=== PATIENT | female | born 1950 | race Caucasian/White ===

== ENCOUNTER 2025-02-03 21:49 | Observation (INO) ==
--- NOTE | 2025-02-03 22:10 | Emergency Department Note ---
HPI - Abdominal Pain General Chief Complaint: Abdominal Pain Stated Complaint: ABDOMINAL PAIN Time Seen by Provider: 02/03/25 21:55 Source: patient Mode of arrival: walk-in Limitations: no limitations History of Present Illness HPI narrative: This is a 75-year-old white female who presents with complaint of "I think I have a bowel blockage again." Patient has a prior history of similar. She states that she has never required surgery, nor seen a surgeon. She states that she was admitted to our hospital here, and "got better with some medicine." She denies fever or chills. She admits to nausea without vomiting. She had severe, diffuse abdominal pain, sudden onset this evening. She states she had a bowel movement earlier today, but it was "hard." She denies any prior history of significant surgeries, and has no other complaints. MD elicited complaint: abdominal pain Pertinent past history: constipation and other (SBO) Onset (ago): hour(s) (1) Pain Consistency: constant Location: diffuse Severity: severe Quality: aching and sharp Radiation: RUQ and epigastric Migration to: no migration Exacerbating factors: nothing Relieving factors: nothing Associated symptoms: nausea Related Data Patient : No Home Medications Medication Instructions Recorded Confirmed albuterol sulfate 90 mcg/actuation 2 puff inhalation Q 4H PRN 10/20/24 10/20/24 aerosol inhaler shortness of breath or wheez ing atorvastatin 10 mg tablet 10 mg PO DAILY 10/20/2403/09 carvedilol 6.25 mg tablet 6.25 mg PO BID 10/20/2403/09 lisinopril 20 mg tablet 20 mg PO DAILY 10/20/2403/09 Previous Rx's Medication Instructions Recorded metoclopramide HCl 5 mg tablet 5 mg PO Q8H bowel obstr uction #20 10/22/24 (Reglan) tabs polyethylene glycol 3350 17 17 g PO DAILY constipation #238 10/22/24 gram/dose oral powder (Miralax) grams Allergies Allergy/AdvReac Type Severity Reaction Status Date / Time iodine Allergy Verified 02/03/25 22:00 IVP dyd Allergy Uncoded 02/03/25 22:00 Review of Systems 2 Status of ROS 10 or more systems reviewed and unremark able except as noted in history and below Constitutional Denies: fever, chills or change in weight Eyes Denies: change in vision, blurry vision or blind spots Ears, nose, mouth, and throat Denies: throat pain, neck pain, throat swelling or difficulty swallowing Cardiovascular Denies: chest pain, palpitations, edema or swelling of feet/ankles Respiratory Denies: shortness of breath, cough, wheezing or stridor Gastrointestinal Reports: abdominal pain, nausea, constipation and change in bowel habits; Denies: vomiting or coffee grounds in vomit Genitourinary Denies: painful urination, urinary frequency or urinary urgency Musculoskeletal Denies: back pain, neck pain, extremity pain or extremity swelling Integumentary/Breast Denies: rash, itching, redness or skin pain Neurological Denies: headache, numbness in extremities, weakness in extremities or lack of coordination Psychiatric Denies: anxiety, mood swings, panic attacks or change in sleep pattern Endocrine Denies: excessive urination, excessive thirst, fatigue or cold intolerance Hematologic/Lymphatic Denies: easy bruising, easy bleeding or enlarged lymph nodes Allergic/Immunologic Denies: hives, throat swelling, tongue swelling or facial swelling PFSH PFS Medical History (Updated 02/03/25 @ 22:25 by Marlene Marrero RN) Hyperlipemia Hypertension Surgical History H/O section Hx of appendectomy H/O left nephrectomy Social History Smoking status: never smoker Within the past year, how often did you have a drink containing alcohol: never Score interpretation: A score less than 3 is consistent with normal alcohol consumption. Non-prescribed substance use: denies use Problems where you live: no known problems Highest level of school completed/degree received: [employer] Feel stressed/tense/nervous/anxious/difficulty sleeping: to some extent Life stressor details: current medical condition Due to disability, difficulty making decisions: No Exam 2 Constitutional: normal general appearance, distress noted (mild), average body habitus and no limitations Vital Signs - 24 hr 02/03/25 21:49 02/03/25 21:49 Temperature 98.4 F Pulse Rate 79 Respiratory Rate 20 Blood Pressure 196/104 Pulse Oximetry 99 99 Oxygen Delivery Me thod Room Air Room Air HENMT: normocephalic, head/scalp atraumatic, hearing grossly normal bilaterally, external ears normal and external nose normal Eyes: PERRL, EOMs intact bilaterally, conjunctivae normal and no scleral icterus Neck/C-Spine: visual inspection normal and trachea midline Lymph: no lymphadenopathy noted and no lymphedema noted Chest: inspection of chest normal and palpation of chest normal Respiratory: breath sounds equal bilaterally, normal respiratory effort and clear to auscultation bilaterally Cardiovascular: normal heart rate noted, regular rhythm noted, no gallop, no rub and no murmur Gastrointestinal: abdomen abnormal to inspection, abdomen soft to palpation, tender to palpation (severe), (epigastric) and (RUQ), nontender to percussion, nondistended, abnormal bowel sounds noted (hypoactive bowel sounds), no masses and no pulsatile mass Genitourinary: no CVA tenderness and bladder normal to palpation Back/Pelvis: spine normal to inspection, no thoracic spine tenderness and no lumbar spine tenderness Extremities: normal to inspection, normal to palpation, no tenderness and full ROM Neurology: no movement abnormality noted, no focal motor deficit noted, no sensory deficits noted and coordination normal Psychiatry: mental status grossly normal, thought process normal, cooperative and affect normal Skin: skin color normal, no rash, no lesions and no ecchymosis noted Image: Body (4 view): 1. Abdominal pain Course Course Hospital Course: Patient is concern for acute bowel obstruction, with history of similar. Her labs and vitals are stable, but she is in significant pain. Her CT scan does show possible partial small bowel obstruction. Patient's pain is improved in the ER with morphine and Zofran. She states that she has previously stayed in the hospital here at this facility, and does not wish to be transferred. I do inform her that we do not have a surgeon here, but she states that Dr. Orta is taking great care of her care before, and she has not required surgery previously, and she is hoping that she can stay here with some IV fluids and see if the bowel obstruction will resolve. I do feel that this is reasonable. I make attempts x 2 to reach out to Aisha Sanchez, case management, for possible admission. At the time of writing, I have not heard back and it has been approximately an hour and a half since initial contact. Also speak to Dr. Orta regarding her patient, and my recommendation for admission patient admitted for further care. Vital Signs Vital signs: Vital Signs Temperature 98.4 F 02/03/25 21:49 Pulse Rate 79 02/03/25 21:49 Respiratory Rate 20 02/03/25 21:49 Blood Pressure 196/104 02/03/25 21:49 Pulse Oximetry 99 02/03/25 21:49 Oxygen Delivery Method Room Air 02/03/25 21:49 Temperature 98.4 F 02/03/25 21:49 Pulse Rate 79 02/03/25 21:49 Respiratory Rate 20 02/03/25 21:49 Blood Pressure 196/104 02/03/25 21:49 Pulse Oximetry 99 02/03/25 21:49 Oxygen Delivery Method Room Air 02/03/25 21:49 MDM - Abdominal Pain MDM Narrative Medical decision making narrative: SBO, colitis, gastroenteritis, ileus, sepsis Patient does have possible partial small bowel obstruction on CT scan. No other emergent findings. Lactic acid negative. no leukocytosis. Vital stable pain control. Differential Diagnosis Differential diagnosis: Likely abdominal pain, acute appendicitis, calculus of kidney, constipation, diverticulitis, endometriosis, gastroenteritis, pancreatitis and small bowel obstruction Medical Records Attestation: I reviewed the patient's medical records. Lab Data Attestation: I reviewed the patient's lab results. Labs: Lab Results 02/03/25 Range/Units 22:00 WBC 9.7 H (4.3-9.3) K/uL RBC 5.0 (4.00-5.50) M/uL Hgb 13.8 (12.5-15.8) gm/dL Hct 42.2 (35.9-46.7) % MCV 84.5 (81.0-93.7) fl MCH 27.6 (27.6-32.2) pg MCHC 32.7 L (33.1-35.3) g/dl RDW 13.7 (11.4-14.2) % Plt Count 227 (152-353) K/uL MPV 8.2 (6.9-10.8) fl Gran % 51.2 (47.8-71.3) % Lymph % (Auto) 35.4 (20.0-43.0) % [place] % (Auto) 8.7 (3.6-9.8) % Eos % (Auto) 4.2 H (0.4-2.8) % Baso % (Auto) 0.5 (0.1-0.85) Lymph # (Auto) 3.4 H (1.1-3.1) [place] # (Auto) 0.8 L (1.1-3.1) Eos # (Auto) 0.4 H (0.0-0.2) Baso # (Auto) 0.0 (0.0-0.1) Absolute Gran (auto) 5.0 (2.3-6.0) Sodium 140 (136-145) mmol/L Potassium 4.3 (3.6-5.2) mmol/L Chloride 104.0 (98-107) mmol/L Carbon Dioxide 29 (21-32) mmol/L Anion Gap 7.0 (4-14) mEq/L BUN 21 H (7-18) mg/dL Creatinine 1.1 (0.6-1.3) mg/dL Estimated GFR 53.1 (>59.9) Glucose 120 H (70-110) mg/dL Lactic Acid 1.0 (0.27-1.43) mmol/L Calcium 9.9 (8.5-10.1) mg/dL Total Bilirubin 0.51 (0.0-1.0) mg/dL AST 17 (15-37) U/L ALT 25 L (30-65) U/L Alkaline Phosphatase 72 (50-136) U/L C-Reactive Protein 0.100 (0.050-0.300) mg/dL Total Protein 7.3 (6.4-8.2) g/dL Albumin 4.2 (3.4-5.0) g/dL Lipase 19.0 (16.0-77.0) U/L Imaging Data Imaging ordered: CT scan - abdomen Attestation: I personally reviewed and interpreted this imaging study as follows: My impression: CT abdomen pelvis without contrast: Gallstones. Postoperative changes. Possible partial small bowel obstruction. Discharge Plan Discharge Patient Disposition: Admitted As Observation Condition: Improved Clinical Impression: Intestinal adhesions with partial obstruction, Acute generalized abdominal pain, Nausea without vomiting Time of Disposition: 00:12 Procedures ED Procedure Instructions IV insertion IV meds x 2
[2025-02-03 22:15] LABS: Basophils%(Percent) Auto 0.5 (0.1-0.85); Eosinophils#(Absolute)Auto 0.4 (0.0-0.2); Eosinophils%(Percent) Auto 4.2 % (0.4-2.8); Granulocytes % - Auto 51.2 % (47.8-71.3); Hematocrit 42.2 % (35.9-46.7); Mean Corpuscular Volume 84.5 fl (81.0-93.7); Monocytes #(Absolute)- Auto 0.8 (1.1-3.1); Monocytes %(Percent)- Auto 8.7 % (3.6-9.8); Platelet Count 227 K/uL (152-353); White Blood Count 9.7 K/uL (4.3-9.3)
[2025-02-03] MEDS: MORPHINE SULFATE 4 MG/ML CARTRIDGE IVP ONE (22:17)
[2025-02-03] MEDS: ONDANSETRON HCL/PF 4 MG/2 ML VIAL IVP ONE (22:18)
[2025-02-03 22:20] LABS: Potassium 4.3 mmol/L (3.6-5.2)
[2025-02-04] MEDS ORDERED: DOCUSATE SODIUM 100 MG CAPSULE PO PRN (01:13)
[2025-02-04] MEDS ORDERED: ALBUTEROL SULFATE INH PRN (01:13)
[2025-02-04] MEDS ORDERED: ACETAMINOPHEN 500 MG TABLET PO PRN (01:13)
[2025-02-04] MEDS: 0.9 % SODIUM CHLORIDE 1000 ML 1,000 ML IV SCH (02:30)
[2025-02-04] MEDS: METOCLOPRAMIDE HCL 10 MG TABLET PO SCH (02:30)
[2025-02-04] MEDS: MORPHINE SULFATE 2 MG/ML CARTRIDGE IV PRN (02:33)
[2025-02-04] MEDS: PANTOPRAZOLE SODIUM 40 MG TABLET.DR PO SCH (08:59)
[2025-02-04] MEDS: ATORVASTATIN CALCIUM 10 MG TABLET PO SCH (08:59)
[2025-02-04] MEDS: polyethylene glycoL 3350 17 GM POWD.PACK PO SCH (09:00)
[2025-02-04] MEDS: lisinopriL 20 MG TABLET PO SCH (09:00)
[2025-02-04] MEDS: ONDANSETRON HCL/PF 4 MG/2 ML VIAL INJ PRN (09:00)
[2025-02-04] MEDS: carvediloL 6.25 MG TABLET PO SCH (09:00)
[2025-02-04] MEDS: FAMOTIDINE 20 MG TABLET PO SCH (09:00)
--- NOTE | 2025-02-04 13:00 | History & Physical Report ---
H&P: HPI History of Present Illness Chief complaint: ABDOMINAL PAIN Narrative: This is a 75-year-old white female who presents with complaint of abdominal pain with nausea and vomiting states "I think I have a bowel blockage again." Patient has a prior history of similar events. She states that she has never required surgery to resolve bowel obstrustions medications have resolved in the past, nor has seen a surgeon for these episodes and has a bowel resection in the distant past. She states that she was admitted to our hospital here, and "got better with some medicine." She denies fever or chills. She admits to nausea without vomiting. She had severe, diffuse abdominal pain, sudden onset this evening. She states she had a bowel movement earlier today, but it was "hard." She denies any fever, headache, diarrhea is constipated always Review of Systems Status of ROS 10 or more systems reviewed and unremark able except as noted in history and below Constitutional Denies: fever, chills, change in weight or fatigue Eyes Denies: change in vision, blurry vision or blind spots Ears, nose, mouth, and throat Denies: throat pain, neck pain, throat swelling or difficulty swallowing Cardiovascular Denies: chest pain, palpitations, edema, swelling of feet/ankles or shortness of breath with exertion Respiratory Denies: shortness of breath, cough, wheezing or stridor Gastrointestinal Reports: abdominal pain, nausea, vomiting, constipation, bloa ting, feeling full early and change in bowel habits; Denies: coffee grounds in vomit, heartburn, diarrhea, belching, excessive passing of gas or difficulty swallowing Genitourinary Denies: painful urination, urinary frequency or urinary urgency Musculoskeletal Denies: back pain, neck pain, extremity pain or extremity swelling Integumentary/Breast Denies: rash, itching, redness or skin pain Neurological Denies: headache, numbness in extremities, weakness in extremities or lack of coordination Psychiatric Reports: anxiety and difficulty concentrating; Denies: mood swings, panic attacks, change in sleep pattern, hopelessness, loss of interest, irrita bility, paranoia, memory loss, visual hallucinations, auditory hallucinations, tactile hallucinations, suicidal ideation or homicidal ideation Endocrine Denies: excessive urination, excessive thirst, fatigue or cold intolerance Hematologic/Lymphatic Denies: easy bruising, easy bleeding or enlarged lymph nodes Allergic/Immunologic Denies: hives, throat swelling, tongue swelling, facial swelling or wheezing PFSH PFSH Medical History (Updated 02/04/25 @ 12:59 by Shani Orta DO) Hyperlipemia Hypertension Surgical History H/O section Hx of appendectomy H/O left nephrectomy Social History Smoking status: never smoker Within the past year, how often did you have a drink containing alcohol: never Score interpretation: A score less than 3 is consistent with normal alcohol consumption. Non-prescribed substance use: denies use Problems where you live: no known problems Highest level of school completed/degree received: high school Feel stressed/tense/nervous/anxious/difficulty sleeping: to some extent Life stressor details: current medical condition Due to disability, difficulty making decisions: No Meds Home Medications and Allergies Home Medications Medication Instructions Recorded Confirmed Type atorvastatin 10 mg tablet 10 mg PO DAILY 10/20/2401/15 History carvedilol 6.25 mg tablet 6.25 mg PO BID 10/20/2401/15 History lisinopril 20 mg tablet 20 mg PO DAILY 10/20/2401/15 History Allergies Allergy/AdvReac Type Severity Reaction Status Date / Time iodine Allergy Verified 02/03/25 22:00 IVP dyd Allergy Uncoded 02/03/25 22:00 Exam Constitutional: abnormal general appearance (disheveled) and (chronically ill), distress noted (mild), abnormal body habitus (obese), no limitations and alert Vital Signs - 24 hr 02/03/25 21:49 02/03/25 21:49 02/03/25 22:30 Temperature 98.4 F Pulse Rate 79 75 Pulse Rate [Bilate ral] Respiratory Rate 20 20 Blood Pressure 196/104 176/89 Blood Pressure [Le ft Arm] Pulse Oximetry 99 99 98 Oxygen Delivery Me thod Room Air Room Air Room Air 02/03/25 23:30 02/04/25 00:30 02/04/25 01:00 Temperature 98.4 F Pulse Rate 76 76 77 Pulse Rate [Bilate ral] Respiratory Rate 20 20 20 Blood Pressure 163/65 164/77 168/79 Blood Pressure [Le ft Arm] Pulse Oximetry 96 97 97 Oxygen Delivery Me thod Room Air Room Air Room Air 02/04/25 01:00 02/04/25 01:14 02/04/25 03:54 Temperature 98.4 F 98.2 F Pulse Rate 77 Pulse Rate [Bilate ral] 75 Respiratory Rate 20 17 Blood Pressure 168/79 Blood Pressure [Le ft Arm] 150/62 Pulse Oximetry 97 95 Oxygen Delivery Me thod Room Air Room Air 02/04/25 08:00 02/04/25 09:00 02/04/25 09:00 Temperature 97.6 F Pulse Rate 112 H Pulse Rate [Bilate ral] 80 Respiratory Rate 18 Blood Pressure 161/72 Blood Pressure [Le ft Arm] 161/72 Pulse Oximetry 97 Oxygen Delivery Me thod Room Air 02/04/25 11:54 Temperature 98.2 F Pulse Rate Pulse Rate [Bilate ral] 90 Respiratory Rate 18 Blood Pressure Blood Pressure [Le ft Arm] 164/68 Pulse Oximetry 96 Oxygen Delivery Me thod Room Air HENMT: normocephalic, head/scalp atraumatic, hearing grossly normal bilaterally, external ears normal, TMs abnormal, external nose normal, oral mucous membranes abnormal and dentition abnormal Eyes: PERRL, EOMs intact bilaterally, conjunctivae normal, no scleral icterus, papilledema noted and periorbital findings normal Neck/C-Spine: abnormal to visual inspection, trachea midline, cervical spine nontender, abnormal cervical ROM noted, supple, no meningeal signs, thyroid normal and no carotid bruits Lymph: no lymphadenopathy noted and no lymphedema noted Chest: inspection of chest normal and palpation of chest normal Respiratory: breath sounds equal bilaterally, normal respiratory effort and clear to auscultation bilaterally Cardiovascular: heart rate abnormal (tachycardic), regular rhythm noted, no gallop, no rub, no murmur, no JVD, no clicks, peripheral pulses 2+ throughout and no bruits noted Gastrointestinal: abdomen abnormal to inspection, abdomen soft to palpation, tender to palpation (severe), (epigastric) and (RUQ), tender to percussion, distended, abnormal bowel sounds noted (hypoactive bowel sounds), hepatosplenomegaly noted, no masses, no pulsatile mass, no ascites and no hernia Genitourinary: no CVA tenderness and bladder normal to palpation Back/Pelvis: spine abnormal to inspection, no thoracic spine tenderness, no lumbar spine tenderness, thoracic spine ROM abnormal and lumbar spine ROM abnormal Extremities: normal to inspection, normal to palpation, no tenderness, full ROM, no joint enlargement and no deformity Neurology: integrated marketing specialist II-XII intact, no movement abnormality noted, no focal motor deficit noted, sensory deficit noted, deep tendon reflexes 2+ bilaterally, gait abnormality noted, speech normal, coordination normal and GCS normal Psychiatry: Mental Status Exam documented within this Exam's Psych section mental status grossly normal, oriented x3, thought process abnormality noted, cooperative, affect normal, psychomotor activity normal and memory normal Feel stressed/tense/nervous/anxious/difficulty sleeping: rather much Life stressors: financial matters and other Life stressor details: illness Skin: skin color abnormal Reports (pale), no rash, no lesions, ecchymosis noted, no wounds, no lacerations, skin turgor abnormal, no jaundice, no petechiae, no mottling, nails abnormality noted and no alopecia Assessment and Plan Assessment and Plan (1) Hypoalbuminemia: Code(s): E88.09 - Other disorders of plasma-protein metabolism, not elsewhere classified (2) Anemia: Qualifiers: Anemia type: other cause Other causes of anemia: nutritional, other Qualified Code(s): 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 Code(s): D64.9 - Anemia, unspecified (3) Constipation: Qualifiers: Constipation type: unspecified constipation type Qualified Code(s): K59.00 - Constipation, unspecified Code(s): K59.00 - Constipation, unspecified (4) Hypertension: Qualifiers: Hypertension type: primary hypertension Qualified Code(s): I10 - Essential (primary) hypertension Code(s): I10 - Essential (primary) hypertension (5) Hyperlipemia: Qualifiers: Hyperlipidemia type: mixed hyperlipidemia Qualified Code(s): E78.2 - Mixed hyperlipidemia Code(s): E78.5 - Hyperlipidemia, unspecified (6) Partial bowel obstruction: Qualifiers: Intestinal obstruction type: obstruction due to adhesions Qualified Code(s): K56.51 - Intestinal adhesions [bands], with partial obstruction Code(s): K56.600 - Partial intestinal obstruction, unspecified as to cause (7) Nausea & vomiting: Qualifiers: Vomiting type: unspecified Qualified Code(s): R11.2 - Nausea with vomiting, unspecified Code(s): R11.2 - Nausea with vomiting, unspecified (8) Abdominal pain: Qualifiers: Abdominal location: epigastric Qualified Code(s): R10.13 - Epigastric pain Code(s): R10.9 - Unspecified abdominal pain Plan Cardiac monitoring 0.9% normal saline at 125 mL/h Reglan 10 mg IV every 8 hours Cipro 4 mg IV every 12 hours Flagyl 500 mg IV every 8 hours Protonix 40 mg IV every 12 hours Serial abdominal exams strict I's and O's and monitor for any bowel movements Lipase urinalysis pending Results Labs Labs: CBC 02/03/25 Range/Units 22:00 WBC 9.7 H (4.3-9.3) K/uL RBC 5.0 (4.00-5.50) M/uL Hgb 13.8 (12.5-15.8) gm/dL Hct 42.2 (35.9-46.7) % Plt Count 227 (152-353) K/uL Gran % 51.2 (47.8-71.3) % Lymph % (Auto) 35.4 (20.0-43.0) % [place] % (Auto) 8.7 (3.6-9.8) % Eos % (Auto) 4.2 H (0.4-2.8) % Baso % (Auto) 0.5 (0.1-0.85) Lymph # (Auto) 3.4 H (1.1-3.1) [place] # (Auto) 0.8 L (1.1-3.1) Eos # (Auto) 0.4 H (0.0-0.2) Baso # (Auto) 0.0 (0.0-0.1) Absolute Gran (auto) 5.0 (2.3-6.0) CMP 02/03/25 22:00 Sodium 140 Potassium 4.3 Chloride 104.0 Carbon Dioxide 29 BUN 21 H Creatinine 1.1 Glucose 120 H Calcium 9.9 Liver Function 02/03/25 Range/Units 22:00 Total Bilirubin 0.51 (0.0-1.0) mg/dL AST 17 (15-37) U/L ALT 25 L (30-65) U/L Alkaline Phosphatase 72 (50-136) U/L Albumin 4.2 (3.4-5.0) g/dL Pulse Oximetry Attestation: I have reviewed the pertinent pulse oximetry results. Imaging Imaging ordered: CT scan - abdomen and CT scan - pelvis Radiologist's impression: CT ABDOMEN AND PELVIS WITHOUT CONTRAST HISTORY: Possible small bowel obstruction COMPARISON: None TECHNIQUE: Axial images were obtained of the abdomen and pelvis without IV contrast. Sagittal and coronal reformatted images were provided. All images were reviewed in a variety of windows and levels. RADIATION REDUCTION TECHNIQUE: Automated exposure control, adjustment of the mA or kV according to patient size, or iterative reconstruction techniques were used. FINDINGS: Please note that lack of IV contrast does limit evaluation of the soft tissues and vascular detail. The visualized lower lung zones demonstrates motion. However lower lungs appear grossly clear. The heart size is within normal limits. There is no evidence of a pericardial effusion. The liver, spleen, pancreas, adrenal glands, and right kidney are grossly unremarkable. Hyperdense material in the gallbladder most likely represents gallstones. The left [place] kidney is not identified or visualized on this examination. Status post hysterectomy. Postsurgical changes are seen in the sigmoid colon which may be from partial bowel resection. There is no evidence of stones or signs of obstructive uropathy. Stomach is distended and filled with food like materials. There appears to be fecal material in the distal small bowel in the lower pelvis which could represent small bowel feces sign secondary to a partial small bowel obstruction. The transition point appears to be in the left lower pelvic region near surgical suture material site. This could be due to an adhesion band. Remaining colon demonstrates constipation. The urinary bladder appears grossly unremarkable. There is no evidence of retroperitoneal or mesenteric lymphadenopathy. The visualized bones demonstrate degenerative changes. There are no concerning lytic or blastic lesions identified. IMPRESSION: 1. Hyperdense material in the gallbladder most likely represents gallstones. 2. Status post hysterectomy. 3. Postsurgical changes are seen in the sigmoid colon which may be from partial bowel resection. 4. There appears to be fecal material in the distal small bowel in the lower pelvis which could represent small bowel feces sign secondary to a partial small bowel obstruction. The transition point appears to be in the left lower pelvic region near surgical suture material site. This could be due to an adhesion band
[2025-02-04] MEDS: CIPROFLOXACIN 400 MG/200ML-D5W 400 MG/200 ML PIGGYBACK IV SCH (13:26)
[2025-02-04] MEDS: PANTOPRAZOLE SODIUM 40 MG VIAL IVP SCH (13:27)
[2025-02-04] MEDS: METOCLOPRAMIDE HCL 10 MG in 0.9 % SODIUM CHLORIDE 50 ML IVP SCH (13:27)
[2025-02-04] MEDS: METRONIDAZOLE 500 MG/100ML-NS 500 MG/100 ML PIGGYBACK IV SCH (13:27)
[2025-02-04 14:11] LABS: Basophils%(Percent) Auto 0.1 (0.1-0.85); Eosinophils%(Percent) Auto 0.3 % (0.4-2.8); Granulocytes#(Absolute)- Auto 11.7 (2.3-6.0)
[2025-02-04 14:12] LABS: Granulocytes % - Auto 84.6 % (47.8-71.3); Hematocrit 41.8 % (35.9-46.7); Mean Corpuscular Volume 84.5 fl (81.0-93.7); Monocytes #(Absolute)- Auto 0.8 (1.1-3.1); Platelet Count 197 K/uL (152-353); White Blood Count 13.8 K/uL (4.3-9.3)
[2025-02-04 15:13] LABS: Specific Gravity Urine 1.025 (1.001-1.035); Urine Appearance CLEAR (CLEAR); Urine Blood NEGATIVE (NEG - TRACE); Urine Color YELLOW (STRAW/YELL.); Urine Urobilinogen Normal (NORMAL)
[2025-02-05] MEDS: ACETAMINOPHEN 1000 MG/100 ML 750 MG/75 ML IV.SOLN IV PRN (21:02)
[2025-02-06 05:56] LABS: Basophils%(Percent) Auto 0.5 (0.1-0.85); Eosinophils#(Absolute)Auto 0.4 (0.0-0.2)
[2025-02-06 05:58] LABS: Granulocytes % - Auto 54.2 % (47.8-71.3); Granulocytes#(Absolute)- Auto 3.8 (2.3-6.0); Hematocrit 38.7 % (35.9-46.7); Mean Corpuscular Volume 85.3 fl (81.0-93.7); Monocytes #(Absolute)- Auto 0.7 (1.1-3.1); Monocytes %(Percent)- Auto 9.3 % (3.6-9.8); Platelet Count 182 K/uL (152-353)
[2025-02-06 06:13] LABS: Potassium 3.6 mmol/L (3.6-5.2)
[2025-02-06 07:44] VITALS: BP 154/58; PULSE 81; RESP 19; TEMP 97.8
[2025-02-06] MEDS: polyethylene glycoL 3350 17 GM POWD.PACK PO PRN (09:17)
--- NOTE | 2025-02-06 10:08 | Discharge Summary ---
DS: Providers Provider Date of admission: 02/04/25 00:04 Primary care physician: Shani Orta DO Admitting clinician: Gatito Holloway Attending physician on admission: Shani Orta Attending physician on discharge: Shani Orta Discharging clinician: Shani Orta Anticipated date of discharge: 02/06/25 DS: Diagnosis Discharge Diagnosis (1) Partial bowel obstruction: Qualifiers: Intestinal obstruction type: obstruction due to adhesions Qualified Code(s): K56.51 - Intestinal adhesions [bands], with partial obstruction (2) Abdominal pain: Qualifiers: Abdominal location: epigastric Qualified Code(s): R10.13 - Epigastric pain (3) Hypoalbuminemia: (4) Anemia: Qualifiers: Anemia type: other cause Other causes of anemia: nutritional, other Qualified Code(s): 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 (5) Constipation: Qualifiers: Constipation type: unspecified constipation type Qualified Code(s): K59.00 - Constipation, unspecified (6) Hypertension: Qualifiers: Hypertension type: primary hypertension Qualified Code(s): I10 - Essential (primary) hypertension (7) Hyperlipemia: Qualifiers: Hyperlipidemia type: mixed hyperlipidemia Qualified Code(s): E78.2 - Mixed hyperlipidemia (8) Nausea & vomiting: Qualifiers: Vomiting type: unspecified Qualified Code(s): R11.2 - Nausea with vomiting, unspecified DS: Summary Hospital Course Hospital Course: Patient is concern for acute bowel obstruction, with history of similar. Her labs and vitals are stable, but she is in significant pain. Her CT scan does show possible partial small bowel obstruction. Patient's pain is improved in the ER with morphine and Zofran. She states that she has previously stayed in the hospital here at this facility, and does not wish to be transferred. I do inform her that we do not have a surgeon here, but she states that Dr. Orta is taking great care of her care before, and she has not required surgery previously, and she is hoping that she can stay here with some IV fluids and see if the bowel obstruction will resolve. I do feel that this is reasonable. Patient was placed in the hospital with IV fluids for gentle hydration as well as correction of electrolytes and bowel rest. Patient's bowel sounds rulings sluggish to the day of discharge patient not had a bowel movement on 02/06/2025 and then was given MiraLAX to allow her to have a better clearing of the pressure bowel obstruction fecal impaction. Patient denied any abdominal pain, medication well and understands the need to continue with daily bowel medicine to help ensure no recurrence of bowel obstruction. Status at Discharge Functional status at discharge: independent ambulation Overall status at discharge: patient is progressing back to baseline Time Spent with Patient Time attestation: Total time spent providing and/or coordinating discharge services:38 Time spent: greater than 30 minutes Exam Constitutional: normal general appearance, no apparent distress, abnormal body habitus (obese), no limitations and alert Vital Signs - 24 hr 02/05/25 12:00 02/05/25 16:00 02/05/25 20:00 Temperature 97.9 F 98 F 98.2 F Pulse Rate [Bilate ral] 71 79 88 Respiratory Rate 19 19 18 Blood Pressure [Le ft Arm] 164/60 157/68 153/59 Pulse Oximetry 95 98 97 Oxygen Delivery De thod Room Air Room Air Room Air 02/06/25 00:00 02/06/25 04:00 02/06/25 07:43 Temperature 98.3 F 98.3 F 97.8 F Pulse Rate [Bilate ral] 79 72 81 Respiratory Rate 17 18 19 Blood Pressure [Le ft Arm] 110/56 161/68 154/58 Pulse Oximetry 96 97 96 Oxygen Delivery De thod Room Air Room Air Room Air HENMT: normocephalic, head/scalp atraumatic, hearing grossly normal bilaterally, external ears normal, TMs abnormal, external nose normal, oral mucous membranes normal and dentition abnormal Eyes: PERRL, EOMs intact bilaterally, conjunctivae normal, no scleral icterus, papilledema noted and periorbital findings normal Neck/C-Spine: abnormal to visual inspection, trachea midline, cervical spine nontender, abnormal cervical ROM noted, supple, no meningeal signs, thyroid normal and no carotid bruits Lymph: no lymphadenopathy noted and no lymphedema noted Chest: inspection of chest normal and palpation of chest normal Respiratory: breath sounds equal bilaterally, normal respiratory effort and clear to auscultation bilaterally Cardiovascular: heart rate abnormal (tachycardic), regular rhythm noted, no gallop, no rub, no murmur, no JVD, no clicks, peripheral pulses 2+ throughout and no bruits noted Gastrointestinal: abdomen normal to inspection, abdomen soft to palpation, nontender to palpation, nontender to percussion, nondistended, abnormal bowel sounds noted (hypoactive bowel sounds), hepatosplenomegaly noted, no masses, no pulsatile mass, no ascites and no hernia Genitourinary: no CVA tenderness and bladder normal to palpation Back/Pelvis: spine abnormal to inspection, no thoracic spine tenderness, no lumbar spine tenderness, thoracic spine ROM abnormal and lumbar spine ROM abnormal Extremities: normal to inspection, normal to palpation, no tenderness, full ROM, no joint enlargement and no deformity Neurology: museum director II-XII intact, no movement abnormality noted, no focal motor deficit noted, sensory deficit noted, deep tendon reflexes 2+ bilaterally, gait abnormality noted, speech normal, coordination normal and GCS normal Psychiatry: Mental Status Exam documented within this Exam's Psych section mental status grossly normal, oriented x3, thought process abnormality noted, cooperative, affect normal, psychomotor activity normal and memory normal Feel stressed/tense/nervous/anxious/difficulty sleeping: rather much Life stressors: financial matters and other Life stressor details: illness Skin: skin color normal, no rash, no lesions, ecchymosis noted, no wounds, no lacerations, skin turgor normal, no jaundice, no petechiae, no mottling, nails abnormality noted and no alopecia DS: Data Data Completed and Pending Labs on day of discharge: Labs from last 24 hours 02/06/25 05:25 WBC 7.0 RBC 4.5 Hgb 12.5 Hct 38.7 MCV 85.3 MCH 27.6 MCHC 32.3 L RDW 13.9 Plt Count 182 MPV 8.1 Gran % 54.2 Lymph % (Auto) 30.0 [place] % (Auto) 9.3 Eos % (Auto) 6.0 H Baso % (Auto) 0.5 Lymph # (Auto) 2.1 [place] # (Auto) 0.7 L Eos # (Auto) 0.4 H Baso # (Auto) 0.0 Absolute Gran (auto) 3.8 Sodium 142 Potassium 3.6 Chloride 110.0 H Carbon Dioxide 25 Anion Gap 7.0 BUN 10 Creatinine 0.9 Estimated GFR 67.5 Glucose 117 H Calcium 8.1 L Phosphorus 2.2 L Magnesium 1.9 Total Bilirubin 0.60 AST 18 ALT 17 L Alkaline Phosphatase 42 L Total Protein 6.0 L Albumin 3.0 L Preliminary micro results at discharge 02/04/25 13:20 Blood Culture - Preliminary Blood - Venous Draw (Peripheral) 02/04/25 13:15 Blood Culture - Preliminary Blood - Venous Draw (Peripheral) Discharge Plan Discharge Disposition: Home, Self-Care Condition: Improved Discharge Medications: New polyethylene glycol 3350 [Miralax] 17 gram/dose powder 17 g PO DAILY Qty: 510 0RF Continued atorvastatin 10 mg tablet 10 mg PO DAILY lisinopril 20 mg tablet 20 mg PO DAILY carvedilol 6.25 mg tablet 6.25 mg PO BID Rx Instructions: must administer with a meal/food Discharge Orders: Discharge Order (Routine); Ordered 02/06/25 Ordered By: Shani Orta Activity: increase activity as tolerated Diet: other Diet Detail: increase water and fiber in her diet Activity Restrictions/Additional Instructions: increase water and fiber in her diet If MiraLAX once a day is not causing bowel movements daily then needs to go to twice a day if has diarrhea with once a day then goes to half capful a day rather than the old capful. Follow-up docs in 7 days with about movement journal GI medicine referral for recurrent partial obstruction and constipation Forms: Portal/Health Info Access Inst Follow-Ups: Shani Orta DO [Primary Care Provider, Medical] - 02/13/25 9:30 am
== END 2025-02-06 10:35 | disposition home or self-care (01) ==
LOC: ED 21:49 → MS 21:49
PROVIDERS: ADMIT Physician Assistant; ATTEND Family Medicine